=== PATIENT | female | born 1980 | race Asian ===

== ENCOUNTER → 2019-02-02 | Outpatient (CLI) | payer BC ==
--- NOTE | 2019-02-02 18:15 | KCIC ---
Examination: NECK SOFT TISSUE History: Palpable lumps involving the neck Comparison/Correlation: None Findings: Ultrasound examination of the neck was performed. There are multiple complex hypoechoic nodules involving the neck bilaterally. The largest on the right measures up to 3.1 cm x 0.7 cm x 1.90 cm. Largest on the left measures up to 1.8 cm x 0.7 cm x 1.3 center. These are well-circumscribed. Flow is evident within some of these lesions. Impression: Multiple hypoechoic nodular masses involving the neck bilaterally. Possibility of these representing edematous, enlarged lymph nodes is raised. Further evaluation with CT of the neck with contrast is recommended. Electronically signed by: Con Burks MD (02/02/2019 6:12 PM) [facility]
== END | disposition home or self-care (01) ==
LOC: KCIC US 15:28
DX: R22.0 Localized swelling, mass and lump, head (principal)
CPT/HCPCS: 76536